=== PATIENT | male | born 1945 | race Caucasian/White ===

== ENCOUNTER 2017-07-07 08:38 | Day surgery (SDC) | payer MEDICARE ==
[2017-07-07] MEDS ORDERED: DIPRIVAN 200 MG/20 ML IV ONE (08:39)
[2017-07-07] MEDS ORDERED: Lactated Ringers 1,000 ML IV ONE (08:54)
[2017-07-07] MEDS ORDERED: Zofran 4 MG/2 ML VIAL IV PRN (09:00)
[2017-07-07] MEDS ORDERED: ACETAZOLAMIDE 250 MG TABLET PO ONE (09:00)
[2017-07-07] MEDS ORDERED: TETRACAINE 0.5% STERI-UNIT SOL OP ONE ×2 (09:00)
[2017-07-07] MEDS ORDERED: Lactated Ringers 1,000 ML IV SCH (09:00)
[2017-07-07] MEDS ORDERED: Ak-Dilate OPHTHALMIC*** 0.71 ML, Cyclogyl 1% OPHTH SOL 5 ML 0.71 ML, GATIFLOXACIN 0.5% ... OP ONE ×4 (09:00)
[2017-07-07] MEDS ORDERED: LIDOCAINE HCL 1% AMPUL 5 ML IJ ONE (10:00)
[2017-07-07] MEDS ORDERED: Epinephrine Preservative Free 1 MG/ML INTRAOP ONE (10:00)
[2017-07-07] MEDS ORDERED: BSS 500 ML, Fortaz/Tazicef 1 GM** 0.2 G IO ONE ×2 (10:00)
[2017-07-07] MEDS ORDERED: BETADINE 5% OPHTHALMIC 30 ML OP ONE (10:00)
[2017-07-07 12:40] VITALS: O2SAT 92
[2017-07-07 13:12] VITALS: BP 151/89; PULSE 77
--- NOTE | 2017-07-07 14:56 | OP ---
DATE/TIME OF OPERATION: 07/07/2017 1124 TIME DICTATED: 1321 PREOPERATIVE DIAGNOSIS: Senile cataract of right eye. POSTOPERATIVE DIAGNOSIS: Senile cataract of right eye. SURGEON: Diana Ward MD [employer] SCOUT: None. OPERATION: Cataract extraction of right eye with an intraocular lens implant. STANDARD COMPLEX ___X___ ANESTHESIA: MAC. ___X___ Monitored anesthesia care in combination with topical and intra-cameral anesthesia (because of the established specific risk of reflux, arrhythmias, or an anxiety attack associated with ocular manipulation as well as difficulty of the night supervisor to manage such potentially catastrophic events while simultaneously attempting to complete the surgical procedure, it was deemed necessary for the patient's safety to have an anesthesiologist or a nurse jewel gauger present during the procedure whenever possible. The anesthesiologist or the nurse jewel gauger was utilized to monitor and regulate the intravenous sedation of the patient, so the patient was cooperative, relaxed, and comfortable). Topical anesthesia using Tetracaine eye drops together with intra cameral anesthesia using Lidocaine 1% MPF. The nurse was utilized to monitor the patient. ANESTHESIA PROVIDER: Javier Ocasio CRNA. COMPLICATIONS: None. BLOOD LOSS: None. INDICATIONS: The patient is undergoing cataract surgery in the hopes of eliminating the visual complaints and difficulty. PROCEDURE: After arriving at the facility's outpatient surgery area, an IV was started; the patient was given 5 mg of p.o. Versed. (If an anesthesia provider was not monitoring the patient) The patient was then given topical anesthetic Tetracaine eye drops. A cotton pellet was soaked into a solution of a combination of Zymaxid 0.5%, Maicol-Synephrine 2.5% and Ocufen (other drops might have been substituted referenced in the patient's record). The pellet was inserted by the RN into the lower conjunctival cul-de-sac with a sterile forceps and left for 20 minutes. The pellet was then removed by the RN with a sterile forceps before taking the patient to the operating room. The preoperative area nurse identified the patient and marked the correct eye to be operated on. I identified the correct eye to be operated on and marked it appropriately in the outpatient surgery area. The patient was then taken into the operating room. Tetracaine eye drops were installed again in the correct eye. The eyelids and the lashes and the lid margins were scrubbed with Betadine solution. One drop of the diluted Betadine solution was placed in the conjunctival cul-de-sac for 45 seconds and then was irrigated. A drop of Tetracaine Gel was placed in the conjunctival cul-de-sac. The patient's forehead was taped to secure it during the procedure. The patient was monitored. The patient was then draped in the usual way for this procedure. An eye speculum was used to separate the eyelids. The eye was then fixated and a temporal 2.5 mm incision was made in the clear cornea temporally at the limbus. Through the incision, 0.25 cc of 1% non-preserved lidocaine was injected into the anterior chamber for intracameral anesthesia. The anterior chamber was then filled with viscoelastic. __X__ The pupil was small. I felt that it would be safer to mechanically dilate the pupil. A Malyugin ring was used at this point which dilated the pupil. That was removed at the end of the procedure prior to aspiration of the viscoelastic from the anterior chamber and posterior to the intraocular lens implant. The cataract had a great amount of cortical changes. That rendered seeing the anterior capsule difficult for a safe performance of an anterior capsulotomy. I injected an air bubble into the anterior chamber. I then injected 1 ML of vision blue solution into the anterior chamber. The vision blue solution was irrigated from the anterior chamber after 30 seconds. The anterior capsule was stained which facilitated performing the anterior capsulotomy safely. After that was completed, a cystotome was introduced into the anterior chamber and a round anterior capsulotomy was performed. The capsule was removed by a forceps. Hydrodissection was next carried utilizing a 25-gauge cannula and balanced salt solution to delineate the cortical material from the capsule and the nucleus from the cortical material. The nucleus was rotated freely into the capsular bag with no difficulty. The phaco tip of the [facility] Phaco[employer] was introduced into the anterior chamber and two grooves were made into the nucleus 90 degrees apart. Using two spatulas resulted into the nucleus being fractured into four quadrants. The phaco tip was then used to remove each quadrant of the nucleus. Viscoelastic was used during this process to protect the corneal endothelium. Once the entire nucleus was removed, the phaco tip then was removed and the irrigation tip was introduced into the eye and the cortex was removed. The posterior capsule was polished. It was noticed that there was a tear into the posterior capsule with few vitreous strands into the pupil plan. An anterior vitrectomy was performed. A 20.00 diopter, [id number], posterior chamber lens implant, was inspected and found to be grossly normal. The implant was inserted into the implant injector cartridge; Viscoelastic again was introduced into the anterior chamber, which filled the capsular bag. The implant injector's cartridge tip was placed at the limbal wound and the posterior chamber implant was released into the capsular bag and rotated appropriately. The implant was found to be into the capsular bag and it was centered. __X___ 0.2 ml of Tri-Moxi was introduced via 27 gauge cannula into the vitreous cavity through the ciliary processes. Viscoelastic was aspirated from the anterior chamber and posterior to the intraocular lens implant from the capsular bag using the irrigating tip. The anterior chamber was irrigated and filled with 5 cc antibiotic solution (500 cc of BSS plus 2 ml of Fortaz 100 mg/ml) ( if patient was not allergic to the medication). The lips of the corneal incision were hydrated using BSS solution. The anterior chamber was checked and found to be water tight. One drop each of antibiotic, steroid and NSAID drops (refer to chart for drops used) were placed in the conjunctival cul-de-sac of the operated eye. Patient tolerated the procedure quite well and left the operating room in satisfactory condition. DISCHARGE SUMMARY: The patient was released in stable condition. The patient and those with the patient were given an instruction sheet as of how to care for the eye after surgery as well as counseling on any abnormal laboratory studies by the postoperative RN. The patient was also given an appointment card for follow-up in the office and is to call immediately for any difficulties including but not limited to pain in the eye, decreased vision, discharge from the eye, headache and or fever. DISCHARGE DIAGNOSIS: Pseudophakia of right eye.
== END 2017-07-07 13:28 | disposition home or self-care (01) ==
LOC: SDC 08:38
PROVIDERS: ATTEND Ophthalmology
PROC: 08RJ3JZ Replacement of Right Lens with Synthetic Substitute, Percutaneous Approach (ICD-10-PCS; principal; 2017-07-07)
PROC: 08B43ZZ Excision of Right Vitreous, Percutaneous Approach (ICD-10-PCS; 2017-07-07)
DX: H25.9 Unspecified age-related cataract (principal)
CPT/HCPCS: 66982; 67005; C1780; 99100; J0171; J2704; A9270-GY

== ENCOUNTER 2018-10-27 15:19 | Emergency (ER) | payer MEDICARE ==
--- NOTE | 2018-10-27 15:46 | ERPHSYRPT ---
- History of Present Illness Time Seen by Provider: 10/27/18 15:40 Source: patient Patient Subjective Stated Complaint: Pt was jacking something up and his hand was on top of the yogi when the yogi slipped sideways and his hand was in between, he was able to pull it out as soon as it hit, lacerations to left pinky finger at bottom knuckle and swelling Triage Nursing Assessment: Pt presents with lacerations to his left hand pinky at the base, bruising, swelling, hypertensive, capillary refill good, pulses good, rates pain 5/10 Physician History: 73 y/o right handed white male presents with left hand trauma including laceration of left 5th digit. 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 pt has nkda. pts tetanus status is not up to date. Occurred: just prior to arrival Method of Injury: direct blow Quality: constant, throbbing Severity of Pain-Max: moderate Severity of Pain-Current: moderate Extremities Pain Location: hand: left, 5th finger: left Modifying Factors: Improves With: movement Associated Symptoms: none Allergies/Adverse Reactions: No Known Drug Allergies Allergy (Verified 10/27/18 15:39) Home Medications: Albuterol 2.5 mg/3 ml Neb [Proventil 2.5 mg/3 ml Neb] 2.5 mg IH UD PRN 12/08 [History] Albuterol 8 gm Mdi Hfa [Ventolin Hfa MDI] 0 gm IH UD PRN 06/29/17 [History ] Celecoxib [Celebrex] 100 mg PO UD PRN 06/29/17 [History] Ibuprofen 200 mg [Motrin 200 mg] 200 mg PO DAILY PRN PRN 06/29/17 [History ] Naproxen Sodium 220 mg [Aleve 220 MG] 1 tab PO DAILY PRN PRN 07/07/17 [ History] Hx Tetanus, Diphtheria Vaccination/Date Given: No (unknown) - Review of Systems Constitutional: No Symptoms Eyes: No Symptoms Ears, Nose, & Throat: No Symptoms Respiratory: No Symptoms Cardiac: No Symptoms Abdominal/Gastrointestinal: No Symptoms Genitourinary Symptoms: No Symptoms Musculoskeletal: Injury (left hand 5th fdigit) Skin: No Symptoms Neurological: No Symptoms Psychological: No Symptoms Endocrine: No Symptoms Hematologic/Lymphatic: No Symptoms Immunological/Allergic: No Symptoms All Other Systems: Reviewed and Negative - Past Medical History Pertinent Past Medical History: Yes Neurological History: No Pertinent History ENT History: Cataracts Cardiac History: Angina, Hypertension Respiratory History: COPD Endocrine Medical History: Diabetes Type II Musculoskeletal History: Arthritis GI Medical History: No Pertinent History History: No Pertinent History Psycho-Social History: No Pertinent History Male Reproductive Disorders: No Pertinent History Other Medical History: hx chest pain - 4-5 years ago - none now. hx htn- none now. past diabetic- no diabetic meds at this time patient states he took diabetic meds at one time but no longer and Dr is aware of has no further problems - Past Surgical History Past Surgical History: Yes Neuro Surgical History: No Pertinent History Cardiac: No Pertinent History Respiratory: No Pertinent History Gastrointestinal: Hernia Repair Genitourinary: No Pertinent History Musculoskeletal: Orthopedic Surgery Male Surgical History: No Pertinent History Other Surgical History: several hernias. left shoulder. right knee reconstruction due to accident. left ankle reconstruction. T&A more than once - Social History Smoking Status: Current every day smoker How long have you smoked: 60+ yrs Exposure to second hand smoke: Yes Drug Use: none Patient Lives Alone: No - Nursing Vital Signs Nursing Vital Signs: Initial Vital Signs Temperature 97.7 F 10/27/18 15:27 Pulse Rate 76 10/27/18 15:27 Blood Pressure 162/88 10/27/18 15:27 O2 Sat by Pulse Oximetry 94 L 10/27/18 15:27 Pain Scale Pain Intensity 5 - Physical Exam General Appearance: no apparent distress, alert, anxiety Eyes, Ears, Nose, Throat Exam: normal ENT inspection, moist mucous membranes Neck Exam: normal inspection, non-tender, supple, full range of motion Cardiovascular/Respiratory Exam: chest non-tender Abdominal Exam: non-tender Back Exam: normal inspection, normal range of motion, No CVA tenderness, No vertebral tenderness Shoulder Exam: normal inspection, non-tender, no evidence of injury, normal ROM Elbow/Forearm Exam: normal inspection, non-tender, no evidence of injury, normal ROM Wrist Exam: normal inspection, non-tender, no evidence of injury, normal ROM Hand Exam: bone tenderness, deformity, laceration (3 separate lac right 5th digit. total length 6cm), soft tissue tenderness, swelling Neuro/Tendon Exam: normal sensation, normal motor functions, normal tendon functions, responds to pain, no evidence tendon injury Mental Status Exam: alert, oriented x 3, cooperative Skin Exam: normal color, warm, dry SpO2 Interpretation: borderline oxygenation SpO2: 94 O2 Delivery: Room Air Procedures - Laceration/Wound Repair Left Finger Wound Location: Left, hand Wound Length (cm): 6 (total) Wound's Depth, Shape: superficial Wound Explored: to base Irrigated: Yes Hibiclens Prep: Yes Anesthesia: 1% Lidocaine Volume Anesthetic (ccs): 10 Wound Debrided: minimal Wound Repaired With: sutures Suture Size/Type: 4-0, prolene Number of Sutures: 12 (total) Layer Closure?: No Sterile Dressing Applied?: Yes Splint Applied?: Yes Type of Splint Applied: finger Sling Applied?: No - Course Nursing assessment & vital signs reviewed: Yes Ordered Tests: Active Orders 24 hr Category Date Time Status Wound Care STAT Care 10/27/18 16:06 Active HAND (MINIMUM 3 VIEWS) Stat Exams 10/27/18 15:46 Completed Medication Summary Discontinued Medications Generic Name Dose Route Start Last Admin Trade Name Freq PRN Reason Stop Dose Admin Bacitracin Zinc 0.9 gm 10/27/18 16:07 10/27/18 16:49 Baciguent Packet TP 10/27/18 16:08 0.9 gm STAT ONE Administration Cefazolin Sodium 1 g 10/27/18 16:07 10/27/18 16:48 Kefzol 1 Gm IM 10/27/18 16:08 1 g STAT ONE Administration Cefazolin Sodium Confirm 10/27/18 16:39 Kefzol 1 Gm Administered 10/27/18 16:40 Dose 1 g .ROUTE .ST[facility]-MED ONE Diphtheria/Tetanus/Acell Pertussis 0.5 ml 10/27/18 16:45 10/27/18 16:47 Adacel Vial IM 10/27/18 16:46 0.5 ml .ONCE ONE Administration Diphtheria/Tetanus/Acell Pertussis Confirm 10/27/18 16:46 Adacel Vial Administered 10/27/18 16:47 Dose 0.5 ml IM .STK-MED ONE Lidocaine HCl Confirm 10/27/18 15:50 Xylocaine 1% Hcl 20 Ml Mdv Administered 10/27/18 15:51 Dose 10 ml .ROUTE .ST[facility]-MED ONE - Progress Progress: improved Progress Note: 10/27/18 16:50 right hand xray-comminuted fx prox 5th phalanx. Counseled pt/family regarding: diagnosis, need for follow-up, rad results - Departure Departure Disposition: Home Clinical Impression: Finger laceration, Fracture of fifth metacarpal bone of left hand Condition: Stable Critical Care Time: No Referrals: JULIA GUPTA [Primary Care Provider] - Additional Instructions: follow up with hand surgeon or orthopedic surgeon of choice tomorrow morning. keep bandage in place for 24 hours. after 24 hours wash daily with soap and water. apply antibiotics ointment daily. Prescriptions: Oxycodone HCl/Acetaminophen [Percocet 5-325 mg Tablet] 1 each PO Q8H PRN PRN # 10 tablet MDD 3 PRN Reason: Pain Cephalexin Mh 500 mg [Keflex 500 mg] 500 mg PO TID #21 capsule
[2018-10-27] MEDS ORDERED: XYLOCAINE 1% HCL 20 ML MDV ONE (15:50)
[2018-10-27] MEDS ORDERED: KEFZOL 1 GM IM ONE (16:07)
[2018-10-27] MEDS ORDERED: BACIGUENT PACKET TP ONE (16:07)
--- NOTE | 2018-10-27 16:13 | XRAY ---
Indication: 5th finger pain following fall. Comparison: None 3 views of the left hand demonstrates mildly displaced comminuted 5th proximal phalanx base fracture with intra-articular extension and soft tissue swelling. Elsewhere mild osteopenia. No other bony, articular, or soft tissue abnormalities.
[2018-10-27] MEDS ORDERED: KEFZOL 1 GM ONE (16:39)
[2018-10-27] MEDS ORDERED: Adacel Vial IM ONE ×2 (16:45→16:46)
[2018-10-27] MEDS ORDERED: NORCO 5/325 MG PO ONE (16:47)
[2018-10-27] MEDS ORDERED: NORCO 5/325 MG ONE (16:51)
[2018-10-27 17:18] VITALS: BP 142/70; PULSE 72; O2SAT 92
== END 2018-10-27 17:16 | disposition home or self-care (01) ==
LOC: ED 15:19
DX: S62.307B Unspecified fracture of fifth metacarpal bone, left hand, initial encounter for open fracture (principal); W24.0XXA Contact with lifting devices, not elsewhere classified, initial encounter; Y93.89 Activity, other specified
CPT/HCPCS: 12002; 29131; 73130; 90471; 90715; 96372; 99284; J0690; A9270-GY

== ENCOUNTER 2023-01-01 15:38 | Emergency (ER) | payer MEDICARE ==
[2023-01-01 16:03] VITALS: TEMP 97.9
[2023-01-01 16:21] LABS: Appearance Clear (Clear); Bacteria None Seen /HPF (None Seen); Bilirubin Negative (Negative); Blood Moderate (Negative); Epithelial Cells None Seen /HPF (None Seen); Glucose, Urine Negative (Negative); Hyaline Casts NONE SEEN /LPF (0-2); Ketones Negative (Negative); Leukocyte Esterase Negative (Negative); Nitrite Negative (Negative); Protein,Urine Dip Negative (Negative); RBC 21-50 /HPF (0-5); Specific Gravity 1.015 (1.005-1.030); WBC 0-2 /HPF (0-5)
[2023-01-01] MEDS ORDERED: Sodium Chloride 0.9% 1000 ML 1,000 ML IV STA (16:21)
--- NOTE | 2023-01-01 16:26 | XRAY ---
Indication: constipation. Comparison: None KUB nonacute and nonobstructed with little scattered colonic fecal debris. Solid organs unremarkable. Osseous structures intact with osteopenia and mild degenerative changes.
[2023-01-01] MEDS ORDERED: Sodium Chloride 0.9% 1000 ML 1,000 ML ONE (16:31)
[2023-01-01 16:33] LABS: ADD URINE CULTURE? NO (NO)
[2023-01-01 16:42] VITALS: RESP 16
[2023-01-01 16:50] LABS: Hematocrit 37.5 % (42-50); Hemoglobin 11.3 g/dL (12.5-18.0); Mean Cell Volume 94.7 fL (78-100); Mean Corpuscular Hemoglobin 28.5 pg (26-32); Mean Corpuscular Hgb Concent. 30.1 g/dL (32-36); Mean Platelet Volume 9.3 fL (7.5-11.0); Platelet Count 465 x10^3/uL (150-450); Red Blood Count 3.96 x10^6/uL (4.1-5.6); Red Cell Distribution Width 14.6 % (11.5-14.0)
[2023-01-01 17:02] LABS: ALBUMIN 3.4 g/dL (3.5-5.0); ALKALINE PHOSPHATASE 110 U/L (38-126); ANION GAP 10.9 MEQ/L (5-15); BLOOD UREA NITROGEN 17 mg/dL (9-20); CHLORIDE 102 mmol/L (98-107); Calcium 8.3 mg/dL (8.4-10.2); Carbon Dioxide 31 mmol/L (22-30); Creatinine 1 0.71 mg/dL (0.66-1.25); EST GLOMERULAR FILTRATION RATE > 60.0 ML/MIN; Glucose 114 mg/dL (74-106); Potassium 3.3 mmol/L (3.5-5.1); SGOT/AST 33 U/L (17-59); SGPT/ALT 22 U/L (0-50); SODIUM 141 mmol/L (137-145); Total Protein 7.2 g/dL (6.3-8.2)
[2023-01-01 17:03] LABS: White Blood Count 25.5 x10^3/uL (4.0-10.5)
--- NOTE | 2023-01-01 17:35 | ERPHSYRPT ---
- History of Present Illness Time Seen by Provider: 01/01/23 16:10 Source: patient Exam Limitations: no limitations Patient Subjective Stated Complaint: Constipation Triage Nursing Assessment: Patient ambulated back to ED and transferred self to bed. Patient A+O X3. Patient's skin pink, warm and dry. Patient complains of constipation for 2 weeks and urinary retention. Patient denies pain or discomfort. Abdomen soft and round with BS X 4. Abdomen soft and round with BS X 4. Physician History: Patient is a 77-year-old white male who says that he has had difficulty urinating and constipation for 2 weeks. He denies any significant bowel movements for 2 weeks and he cannot urinate for the past 2 weeks except for just small amounts. He is otherwise a poor historian. Timing/Duration: week(s) (2) Quality: burning, cramping Onset Location: suprapubic Associated Symptoms: abdominal pain Sexual intercourse history: non-contributory Allergies/Adverse Reactions: No Known Drug Allergies Allergy (Verified 01/01/23 15:54) Hx Tetanus, Diphtheria Vaccination/Date Given: No (unknown) Hx Influenza Vaccination/Date Given: No Hx Pneumococcal Vaccination/Date Given: No Immunizations Up to Date: Yes Travel Risk - International Travel Have you traveled outside of the country in past 3 weeks: No - Coronavirus Screening Are you exhibiting any of the following symptoms?: No Close contact with a COVID-19 positive Pt in past 14-21 Days: No - Vaccine Status Have you recieved a Covid-19 vaccination: Yes Pan Helper: Unknown - Vaccination Dates Dates if Unknown: na - Past Medical History Pertinent Past Medical History: Yes Neurological History: No Pertinent History ENT History: Cataracts Cardiac History: Angina, Hypertension Respiratory History: COPD Endocrine Medical History: Diabetes Type II Musculoskeletal History: Arthritis GI Medical History: No Pertinent History History: No Pertinent History Psycho-Social History: No Pertinent History Male Reproductive Disorders: No Pertinent History Other Medical History: hx chest pain - 4-5 years ago - none now. hx htn- none now. past diabetic- no diabetic meds at this time patient states he took diabetic meds at one time but no longer and is aware of has no further problems - Past Surgical History Past Surgical History: Yes Neuro Surgical History: No Pertinent History Cardiac: No Pertinent History Respiratory: No Pertinent History Gastrointestinal: Hernia Repair Genitourinary: No Pertinent History Musculoskeletal: Orthopedic Surgery Male Surgical History: No Pertinent History Other Surgical History: several hernias. left shoulder. right knee reconstruction due to accident. left ankle reconstruction. T&A more than once - Social History Smoking Status: Current every day smoker How long have you smoked: 60+ yrs Exposure to second hand smoke: Yes Drug Use: none Patient Lives Alone: No - Review of Systems Constitutional: No Fever, No Chills Eyes: No Symptoms Ears, Nose, & Throat: No Symptoms Respiratory: No Cough, No Dyspnea Cardiac: No Chest Pain, No Edema, No Syncope Abdominal/Gastrointestinal: No Abdominal Pain, No Nausea, No Vomiting, No Diarrhea Genitourinary Symptoms: No Dysuria Musculoskeletal: No Back Pain, No Neck Pain Skin: No Rash Neurological: No Dizziness, No Focal Weakness, No Sensory Changes Psychological: No Symptoms Endocrine: No Symptoms All Other Systems: Reviewed and Negative - Nursing Vital Signs Nursing Vital Signs: Initial Vital Signs Temperature 97.9 F 01/01/23 15:56 Pulse Rate 67 01/01/23 15:56 Respiratory Rate 20 01/01/23 15:56 Blood Pressure 149/73 01/01/23 15:56 O2 Sat by Pulse Oximetry 96 01/01/23 15:56 Pain Scale Pain Intensity 0 - Physical Exam General Appearance: moderate distress Eye Exam: PERRL/EOMI Ears, Nose, Throat Exam: pharynx normal, moist mucous membranes Neck Exam: normal inspection, supple Respiratory Exam: normal breath sounds, lungs clear Cardiovascular Exam: regular rate/rhythm, No edema Gastrointestinal/Abdomen Exam: other (Suprapubic fullness and bladder appears to be nearly at the umbilicus) Male Genital Exam: normal genitalia Back Exam: normal inspection, No CVA tenderness Extremity Exam: normal inspection, normal range of motion, No pedal edema Neurologic Exam: alert, oriented x 3, cooperative, sensation nml, No motor deficits Skin Exam: normal color, warm, dry, No rash SpO2 Interpretation: normal SpO2: 93 O2 Delivery: Room Air - Course Nursing assessment & vital signs reviewed: Yes - Radiology Exams Abdomen X-ray Interpretation: Reviewed by me, Other (Severe constipation) Ordered Tests: Active Orders 24 hr Category Date Time Status Enema STAT Care 01/01/23 16:20 Active Butcher [Catheter-[place] Butcher] STAT Care 01/01/23 15:53 Active IV Insertion STAT Care 01/01/23 16:29 Active KUB Stat Exams 01/01/23 15:44 Completed CBC W DIFF Stat Lab 01/01/23 16:45 Completed CMP Stat Lab 01/01/23 16:45 Completed CULTURE,URINE Stat Lab 01/01/23 15:56 Received Lactic Acid Stat Lab 01/01/23 16:50 Completed Manual Differential NC Stat Lab 01/01/23 16:45 Completed UA W/RFX UR CULTURE Stat Lab 01/01/23 15:56 Completed Medication Summary Discontinued Medications Generic Name Dose Route Start Last Admin Trade Name Freq PRN Reason Stop Dose Admin Sodium Chloride 1,000 mls @ 999 mls/hr 01/01/23 16:21 01/01/23 16:33 Sodium Chloride 0.9% 1000 Ml IV 01/01/23 17:21 999 mls/hr .Q1H1M STA Administration Sodium Chloride Confirm 01/01/23 16:31 Sodium Chloride 0.9% 1000 Ml Administered 01/01/23 16:32 Dose 1,000 mls @ ud .ROUTE .[facility]-MED ONE Lab/Rad Data: Laboratory Result Diagrams 01/01/23 16:45 01/01/23 16:45 Laboratory Results 01/01/23 01/01/23 01/01/23 Range/Units 16:50 16:45 16:45 WBC 25.5 H* (4.0-10.5) x10^3/uL RBC 3.96 L (4.1-5.6) x10^6/uL Hgb 11.3 L (12.5-18.0) g/dL Hct 37.5 L (42-50) % MCV 94.7 (78-100) fL MCH 28.5 (26-32) pg MCHC 30.1 L (32-36) g/dL RDW 14.6 H (11.5-14.0) % Plt Count 465 H (150-450) x10^3/uL MPV 9.3 (7.5-11.0) fL Sodium 141 (137-145) mmol/L Potassium 3.3 L (3.5-5.1) mmol/L Chloride 102 (98-107) mmol/L Carbon Dioxide 31 H (22-30) mmol/L Anion Gap 10.9 (5-15) MEQ/L BUN 17 (9-20) mg/dL Creatinine 0.71 (0.66-1.25) mg/dL Estimated GFR > 60.0 ML/MIN Glucose 114 H (74-106) mg/dL Lactic Acid 1.8 (0.4-2.0) Calcium 8.3 L (8.4-10.2) mg/dL Total Bilirubin 0.50 (0.2-1.3) mg/dL AST 33 (17-59) U/L ALT 22 (0-50) U/L Alkaline Phosphatase 110 (38-126) U/L Serum Total Protein 7.2 (6.3-8.2) g/dL Albumin 3.4 L (3.5-5.0) g/dL Urine Color (Yellow) Urine Appearance (Clear) Urine pH (4.6-8.0) Ur Specific [place] (1.005-1.030) Urine Protein (Negative) Urine Glucose (UA) (Negative) mg/dL Urine Ketones (Negative) Urine Blood (Negative) Urine Nitrite (Negative) Urine Bilirubin (Negative) Urine Urobilinogen (0.2) mg/dL Ur Leukocyte Esterase (Negative) U Hyaline Cast (Auto) (0-2) /LPF Urine Microscopic RBC (0-5) /HPF Urine Microscopic WBC (0-5) /HPF Ur Epithelial Cells (None Seen) /HPF Urine Bacteria (None Seen) /HPF Urine Culture Reflexed (NO) 01/01/23 Range/Units 15:56 WBC (4.0-10.5) x10^3/uL RBC (4.1-5.6) x10^6/uL Hgb (12.5-18.0) g/dL Hct (42-50) % MCV (78-100) fL MCH (26-32) pg MCHC (32-36) g/dL RDW (11.5-14.0) % Plt Count (150-450) x10^3/uL MPV (7.5-11.0) fL Sodium (137-145) mmol/L Potassium (3.5-5.1) mmol/L Chloride (98-107) mmol/L Carbon Dioxide (22-30) mmol/L Anion Gap (5-15) MEQ/L BUN (9-20) mg/dL Creatinine (0.66-1.25) mg/dL Estimated GFR ML/MIN Glucose (74-106) mg/dL Lactic Acid (0.4-2.0) Calcium (8.4-10.2) mg/dL Total Bilirubin (0.2-1.3) mg/dL AST (17-59) U/L ALT (0-50) U/L Alkaline Phosphatase (38-126) U/L Serum Total Protein (6.3-8.2) g/dL Albumin (3.5-5.0) g/dL Urine Color Yellow (Yellow) Urine Appearance Clear (Clear) Urine pH 7.0 (4.6-8.0) Ur Specific [place] 1.015 (1.005-1.030) Urine Protein Negative (Negative) Urine Glucose (UA) Negative (Negative) mg/dL Urine Ketones Negative (Negative) Urine Blood Moderate A (Negative) Urine Nitrite Negative (Negative) Urine Bilirubin Negative (Negative) Urine Urobilinogen 1.0 A (0.2) mg/dL Ur Leukocyte Esterase Negative (Negative) U Hyaline Cast (Auto) NONE SEEN (0-2) /LPF Urine Microscopic RBC 21-50 A (0-5) /HPF Urine Microscopic WBC 0-2 (0-5) /HPF Ur Epithelial Cells None Seen (None Seen) /HPF Urine Bacteria None Seen (None Seen) /HPF Urine Culture Reflexed NO (NO) - Progress Progress: improved Medical Desision Making - Diagnostic Testing Diagnostic test were ordered, analyzed, and reviewed by me: Yes Radiological Interpretation: Reviewed by me - Risk of complications Low Risk: Low risk of morbidity from additional dx testing or treatment - Departure Departure Disposition: Home Clinical Impression: Urinary retention Condition: Stable Critical Care Time: No Referrals: DOCTOR,NO FAMILY [Primary Care Provider] - Follow up/PCP as directed Instructions: Constipation, Adult (DC), Urinary Retention (DC) Additional Instructions: Patient was instructed to see his primary care physician but he informed us that he would certainly be taking the catheter out himself has not instructed on Mond ay. Prescriptions: Tamsulosin HCl 0.4 mg [Flomax 0.4 MG] 0.4 mg PO DAILY 30 Days #30 cap
[2023-01-01] MEDS ORDERED: BACTRIM DS TABLET PO ONE (17:40)
[2023-01-01] MEDS ORDERED: Flomax 0.4 MG ONE (17:40)
[2023-01-01] MEDS ORDERED: BACTRIM DS TABLET PO STA (17:41)
[2023-01-01 17:44] VITALS: BP 179/77; PULSE 98; O2SAT 92
[2023-01-01 19:36] LABS: Eosinophil 3 % (0.00-3.0); Lymphocytes 11 % (24-44); Monocyte 2 % (0.0-12.0); Neutrophils 84 % (36.-66.); Platelet Estimate INCREASED (NORMAL); Total Cells Counted 100
[2023-01-01] MEDS ORDERED: Flomax 0.4 MG PO SCH (22:00)
== END 2023-01-01 17:55 | disposition home or self-care (01) ==
LOC: ED 15:38
DX: R33.9 Retention of urine, unspecified (principal); K59.00 Constipation, unspecified; I10 Essential (primary) hypertension; E11.9 Type 2 diabetes mellitus without complications; Z72.0 Tobacco use
CPT/HCPCS: 36000; 36415; 51702; 74018; 80053; 81001; 83605; 85025; 87086; 96360; 99284; A9270-GY

== ENCOUNTER 2023-02-04 10:38 | Emergency (ER) | payer MEDICARE ==
--- NOTE | 2023-02-04 10:50 | ERPHSYRPT ---
- History of Present Illness Time Seen by Provider: 02/04/23 10:50 Source: patient Exam Limitations: no limitations Physician History: This is a 77-year-old white male patient who is unclean and disheveled and presents to the emergency department approximately 1 month after Butcher catheter was placed because of urinary retention. According to the patient, he removed the catheter himself within a short period of time after it was placed. He told the nurse that he did not want to follow-up with any doctor. However, today, he was having urinary retention. He only wants a Butcher catheter and bag replaced. He states this time he will follow-up with the urologist. Timing/Duration: today Activites at Onset: none Quality: pressure (Suprapubic region) Onset Location: suprapubic Severity of Pain-Max: none Severity of Pain-Current: none Modifying Factors: Improves With: nothing Associated Symptoms: abdominal pain (Suprapubic pressure, mild) Prior abdominal problems: none Sexual intercourse history: non-contributory Allergies/Adverse Reactions: No Known Drug Allergies Allergy (Verified 02/04/23 10:57) Home Medications: No Reportable Medications [No Reported Medications] 02/04/23 [History] Hx Tetanus, Diphtheria Vaccination/Date Given: No (unknown) Hx Influenza Vaccination/Date Given: No Hx Pneumococcal Vaccination/Date Given: No Travel Risk - International Travel Have you traveled outside of the country in past 3 weeks: No - Coronavirus Screening Are you exhibiting any of the following symptoms?: No Close contact with a COVID-19 positive Pt in past 14-21 Days: No - Vaccine Status Have you recieved a Covid-19 vaccination: Yes Collar Feller: Unknown - Vaccination Dates Dates if Unknown: na - Past Medical History Pertinent Past Medical History: Yes Neurological History: No Pertinent History ENT History: Cataracts Cardiac History: Angina, Hypertension Respiratory History: COPD Endocrine Medical History: Diabetes Type II Musculoskeletal History: Arthritis GI Medical History: No Pertinent History History: No Pertinent History Psycho-Social History: No Pertinent History Male Reproductive Disorders: No Pertinent History Other Medical History: hx chest pain - 4-5 years ago - none now. hx htn- none now. past diabetic- no diabetic meds at this time patient states he took diabetic meds at one time but no longer and Dr is aware of has no further problems - Past Surgical History Past Surgical History: Yes Neuro Surgical History: No Pertinent History Cardiac: No Pertinent History Respiratory: No Pertinent History Gastrointestinal: Hernia Repair Genitourinary: No Pertinent History Musculoskeletal: Orthopedic Surgery Male Surgical History: No Pertinent History Other Surgical History: several hernias. left shoulder. right knee reconstruction due to accident. left ankle reconstruction. T&A more than once - Social History Smoking Status: Current every day smoker How long have you smoked: 60+ yrs Exposure to second hand smoke: Yes Drug Use: none Patient Lives Alone: No - Review of Systems Constitutional: No Symptoms Eyes: No Symptoms Ears, Nose, & Throat: No Symptoms Respiratory: No Symptoms Cardiac: No Symptoms Abdominal/Gastrointestinal: No Symptoms Genitourinary Symptoms: Urinary Retention Musculoskeletal: No Symptoms Skin: No Symptoms Neurological: No Symptoms Psychological: No Symptoms Endocrine: No Symptoms Hematologic/Lymphatic: No Symptoms Immunological/Allergic: No Symptoms All Other Systems: Reviewed and Negative - Nursing Vital Signs Nursing Vital Signs: Initial Vital Signs Temperature 97.2 F 02/04/23 10:48 Pulse Rate 99 H 02/04/23 10:48 Blood Pressure 102/57 02/04/23 10:48 O2 Sat by Pulse Oximetry 97 02/04/23 10:48 Pain Scale Pain Intensity 0 - Physical Exam General Appearance: no apparent distress, alert, anxiety, thin Eye Exam: PERRL/EOMI, eyes nml inspection Ears, Nose, Throat Exam: normal ENT inspection, moist mucous membranes Neck Exam: normal inspection, non-tender, supple, full range of motion Respiratory Exam: airway intact, No chest tenderness, No respiratory distress Gastrointestinal/Abdomen Exam: No tenderness Rectal Exam: not done Back Exam: normal inspection, normal range of motion, No CVA tenderness, No vertebral tenderness Extremity Exam: normal inspection, normal range of motion, pelvis stable Neurologic Exam: alert, oriented x 3, cooperative, 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 Level complex in the work- up performed is based on review of the patient's past medical history, review the patient's medication list, review the patient's drug allergy list, history of present illness and physical findings on examination. No radiographic or laboratory studies are necessary in this patient. Patient declines this work- up. He only wants to have a Butcher catheter replaced. Counseled pt/family regarding: diagnosis, need for follow-up Medical Desision Making - Diagnostic Testing Diagnostic test were ordered, analyzed, and reviewed by me: No - Risk of complications Low Risk: Low risk of morbidity from additional dx testing or treatment - Departure Departure Disposition: Home Clinical Impression: Urinary retention, Difficult Butcher catheter placement Condition: Stable Critical Care Time: No Referrals: DOCTOR,NO FAMILY [Primary Care Provider] - Follow up/PCP as directed Additional Instructions: Keep your Butcher catheter in place until you are evaluated by the urologist. They will decide when to have the Butcher catheter removed. Keep your appointment with the urologist.
[2023-02-04 11:08] VITALS: BP 102/57; PULSE 99; TEMP 97.2; O2SAT 97
[2023-02-04 11:29] LABS: Appearance Clear (Clear); Bacteria None Seen /HPF (None Seen); Bilirubin Negative (Negative); Blood NHT (Negative); Epithelial Cells None Seen /HPF (None Seen); Glucose, Urine Negative (Negative); Hyaline Casts NONE SEEN /LPF (0-2); Ketones Negative (Negative); Leukocyte Esterase Negative (Negative); Nitrite Negative (Negative); Ph 6.5 (4.6-8.0); Protein,Urine Dip Negative (Negative); WBC 0-2 /HPF (0-5)
[2023-02-04 11:35] LABS: ADD URINE CULTURE? NO (NO)
== END 2023-02-04 11:36 | disposition home or self-care (01) ==
LOC: ED 10:38
DX: R33.9 Retention of urine, unspecified (principal); Z72.0 Tobacco use
CPT/HCPCS: 51702; 81001; 87086; 99283

== ENCOUNTER 2023-02-10 18:37 | Emergency (ER) | payer MEDICARE ==
[2023-02-10 18:54] VITALS: PULSE 80; TEMP 97
[2023-02-10 19:03] VITALS: BP 122/62; RESP 22; O2SAT 92
[2023-02-10 19:22] LABS: Appearance Clear (Clear); Bacteria None Seen /HPF (None Seen); Bilirubin Negative (Negative); Blood NHT (Negative); Epithelial Cells None Seen /HPF (None Seen); Glucose, Urine Negative (Negative); Hyaline Casts NONE SEEN /LPF (0-2); Ketones Negative (Negative); Leukocyte Esterase Negative (Negative); Nitrite Negative (Negative); Ph 5.5 (4.6-8.0); Protein,Urine Dip Trace (Negative); RBC 0-2 /HPF (0-5)
[2023-02-10 19:29] LABS: ADD URINE CULTURE? ORDERED SEPARATELY (NO)
== END 2023-02-10 19:10 | disposition left against medical advice (07) ==
LOC: ED 18:37
DX: Z46.6 Encounter for fitting and adjustment of urinary device (principal)
CPT/HCPCS: 51702; 81001; 87086; G0463; 99283